=== PATIENT | male | born 1995 | race Caucasian/White ===

== ENCOUNTER 2020-06-02 02:57 | Emergency (ER) | payer SELFPAY ==
[~2020-06-02] VITALS: Ht 188 cm; Wt 142.9 kg
[~2020-06-02 02:57] MED LIST: ALBU0.0952
[2020-06-02 03:10] VITALS: BP 151/90
--- NOTE | 2020-06-02 03:10 | NUR ---
TO CHAIR C AMBULATORY
--- NOTE | 2020-06-02 03:20 | NUR ---
SEEN AND EXAMINED BY [facility] WITH ORDERS , CARRIED OUT.
[2020-06-02] MEDS ORDERED: MORPHINE SULFATE 4 MG/ML SYR IVP ONE (03:30)
[2020-06-02] MEDS ORDERED: ASPIRIN 325 MG TAB PO ONE (03:30)
[2020-06-02] MEDS ORDERED: NITROGLYCERIN 0.4 MG TAB SL ONE (03:30)
--- NOTE | 2020-06-02 03:42 | NUR ---
PT TAKEN TO CHAIR
[2020-06-02] MEDS ORDERED: KETOROLAC 30 MG/ML VIAL IVP ONE (03:45)
--- NOTE | 2020-06-02 03:50 | NUR ---
MEDICATED PER [facility] ORDER, PATIENT TOLERATED WELL.
--- NOTE | 2020-06-02 04:23 | NUR ---
SENT FOR XRAY WITH [facility]
--- NOTE | 2020-06-02 04:25 | NUR ---
PT RETURN FROM XRAY
[2020-06-02 04:26] LABS: BASOPHILS # (AUTO) 0.1 K/uL (0.00-0.22); BASOPHILS % (AUTO) 0.9 % (0.0-2.0); EOSINOPHILS # (AUTO) 0.1 K/uL (0-0.4); EOSINOPHILS % (AUTO) 1.3 % (0.0-4.0); HEMATOCRIT 44.5 % (36-52); LYMPHOCYTES # (AUTO) 2.6 K/uL (2.0-11.5); LYMPHOCYTES % (AUTO) 24.9 % (20.5-51.1); MEAN CORPUSCULAR HEMOGLOBIN 27 pg (27-31); MEAN CORPUSCULAR HGB CONC 34 g/dL (33-37); MEAN CORPUSCULAR VOLUME 80.4 fL (80-94); MONOCYTES # (AUTO) 0.4 K/uL (0.8-1.0); MONOCYTES % (AUTO) 4.2 % (1.7-9.3); NEUTROPHILS # (AUTO) 7.1 K/uL (1.8-7.7); NEUTROPHILS % (AUTO) 68.7 % (42.2-75.2); PLATELET COUNT (AUTO) 259 K/uL (140-450); RED BLOOD CELL COUNT(AUTO) 5.53 MIL/uL (4.20-6.10); WHITE BLOOD COUNT (AUTO) 10.4 K/uL (4.8-10.8)
[2020-06-02 04:45] LABS: ALBUMIN 4.2 g/dL (3.4-5.0); ANION GAP 16.4 (8-16); CREATININE 0.9 mg/dL (0.6-1.3); POTASSIUM 4.4 mmol/L (3.5-5.1); TOTAL BILIRUBIN 0.3 mg/dL (0.0-1.0)
[2020-06-02] MEDS ORDERED: ALUMINUM HYD/MAG/SIMETHICONE 30 ML, DICYCLOMINE HCL LIQUID 20 MG, LIDOCAINE VISCOUS 2% ... PO ONE ×3 (05:15)
[2020-06-02] MEDS ORDERED: MORPHINE SULFATE 2 MG/ML SYR IVP ONE ×2 (05:15→05:16)
[2020-06-02] MEDS ORDERED: ALUMINUM HYD/MAG/SIMETHICONE 30 ML UDC PO ONE (05:45)
[2020-06-02] MEDS ORDERED: [UNRECOGNIZED DRUG - MIXTURE] PO ONE ×3 (05:55)
[2020-06-02] MEDS ORDERED: DICYCLOMINE HCL LIQUID 10 MG/5 ML UDC ONE (05:55)
[2020-06-02] MEDS ORDERED: LIDOCAINE VISCOUS 2% 20 ML UDC ONE (05:55)
[2020-06-02 06:27] VITALS: BP 151/90
--- NOTE | 2020-06-02 06:28 | NUR ---
Patient discharged with v/s stable. Written and verbal after care instructions given and explained. Patient alert, oriented and verbalized understanding of instructions. Ambulatory with steady gait. All questions addressed prior to discharge. ID band removed. Patient advised to follow up with PMD. Rx of PROTONIX given. Patient educated on indication of medication including possible reaction and side effects. Opportunity to ask questions provided and answered.
== END 2020-06-02 06:28 | disposition home or self-care (01) ==
LOC: MED 02:57
DX: R07.89 Other chest pain (principal); Z20.828 Contact with and (suspected) exposure to other viral communicable diseases; R06.02 Shortness of breath; M79.89 Other specified soft tissue disorders; F17.210 Nicotine dependence, cigarettes, uncomplicated
CPT/HCPCS: 36415; 71045; 80053; 84484; 85025; 85379; 87426; 93005; 96374; 99284; J1885; J2270